=== PATIENT | male | born 1950 | race Caucasian/White ===

== ENCOUNTER → 2024-01-26 10:50 | Outpatient (REF) | payer MEDICARE, SELFPAY | LOC: MRI 3T 10:50 | PROVIDERS: ATTENDING PHYSICIAN Urology; FAMILY PHYSICIAN Family Medicine | DX: C61 Malignant neoplasm of prostate (principal) | CPT/HCPCS: 72197; A9575 ==

== ENCOUNTER → 2025-07-17 12:59 | Outpatient (REF) | payer MEDICARE, SELFPAY | LOC: MRI 3T 12:59 | PROVIDERS: ATTENDING PHYSICIAN Urology; FAMILY PHYSICIAN Family Medicine | DX: R97.20 Elevated prostate specific antigen [PSA] (principal); C61 Malignant neoplasm of prostate | CPT/HCPCS: 72197; A9575 ==